=== PATIENT | male | born 1960 | race Hispanic/Latino ===

== ENCOUNTER 2023-12-22 08:53 | Inpatient (IN) | payer BC ==
[~2023-12-22] VITALS: Ht 170.2 cm; Wt 70.0 kg
[2023-12-22] MEDS ORDERED: KETOROLAC TROMETHAMINE 30 MG/ML VIAL IV ONE (09:15)
[2023-12-22] MEDS ORDERED: AMP/SULBACTAM SOD 3 GM in SODIUM CHLORIDE 0.9% 100 ML IV ONE (09:15)
[2023-12-22 09:38] LABS: HEMATOCRIT 38.1 % (35.0-50.0); HEMOGLOBIN 12.7 g/dL (12.0-18.0); MCHC 33.2 g/dl (30-36); MCV 93.4 fl (81-99); PLATELET COUNT 376 K/uL (140-440); RBC 4.08 M/ul (4.3-5.7); RDW 13.3 (10.5-15.0)
[2023-12-22] MEDS ORDERED: AMP/SULBACTAM SOD 3 GM VIAL IV ONE (09:45)
[2023-12-22 09:52] LABS: ALBUMIN 2.1 g/dL (3.4-5.0); ALBUMIN/GLOBULIN RATIO 0.4 (1.1-2.4); ANION GAP 13.1 (7-21); BILIRUBIN, TOTAL 0.7 ng/dL (0.2-1.0); BUN/CREATININE RATIO 13.69 (6.0-28.6); CALCIUM 8.7 mg/dL (8.5-10.1); CREATININE, SERUM 0.73 mg/dL (0.70-1.30); POTASSIUM 4.1 mmol/L (3.5-5.1); PROTEIN, TOTAL 7.3 g/dL (6.4-8.2)
[2023-12-22 09:53] LABS: BANDS, MANUAL DIFF 2; LYMPHOCYTES, MANUAL DIFF 4; MONOCYTES, MANUAL DIFF 5; NEUTROPHILS, MANUAL DIFF 89
[2023-12-22] MEDS ORDERED: SODIUM CHLORIDE 0.9% 1,000 ML IV ONE (11:15)
[2023-12-22] MEDS ORDERED: HYDROmorphone HCL 1 MG/ML SYR IV PRN ×4 (11:15→14:00)
[2023-12-22] MEDS ORDERED: DEXTROSE 50% 50 ML SYR IV PRN ×2 (11:30)
[2023-12-22] MEDS ORDERED: GLUCAGON,HUMAN RECOMBINANT 1 MG/ML VIAL SUB-Q PRN (11:30)
[2023-12-22] MEDS ORDERED: DEXTROSE 5% 1,000 ML IV PRN (11:30)
[2023-12-22] MEDS ORDERED: LACTATED RINGER'S 1,000 ML IV SCH (11:45)
[2023-12-22] MEDS ORDERED: ondansetron HCL 4 MG/2 ML VIAL IV PRN ×3 (11:45→14:00)
[2023-12-22] MEDS ORDERED: LIDOCAINE 1% W/ EPI 1:200,000 30 ML SDV ONE (12:09)
[2023-12-22] MEDS ORDERED: BUPIVACAINE HCL 0.25% 50 ML MDV ONE (12:09)
[2023-12-22] MEDS ORDERED: PROCHLORPERAZINE EDISYLATE 10 MG/2 ML VIAL IV PRN ×2 (12:15→14:00)
[2023-12-22] MEDS ORDERED: HYDROCODONE/APAP 10/325 1 TAB PO PRN (12:15)
[2023-12-22] MEDS ORDERED: ACETAMINOPHEN 325 MG TAB PO PRN ×2 (12:15→14:15)
[2023-12-22] MEDS ORDERED: CYANOCOBALAMIN 1,000 MCG/ML VIAL IM ONE (12:30)
[2023-12-22] MEDS ORDERED: NS + 20 mEq KCl 1,000 ML IV SCH (12:30)
[2023-12-22] MEDS ORDERED: fentaNYL citrate 100 MCG/2 ML VIAL ONE (12:38)
[2023-12-22] MEDS ORDERED: ondansetron HCL 4 MG/2 ML VIAL ONE (12:38)
[2023-12-22] MEDS ORDERED: propofoL 200 MG/20 ML VIAL ONE (12:38)
[2023-12-22] MEDS ORDERED: BUPIVACAINE 0.75% IN DEXTROSE 2 ML AMP ONE (12:38)
[2023-12-22] MEDS ORDERED: LIDOCAINE HCL 2% 5 ML SDV ONE ×2 (12:38)
[2023-12-22] MEDS ORDERED: MIDAZOLAM HCL 2 MG/2 ML VIAL ONE (12:38)
[2023-12-22] MEDS ORDERED: SODIUM HYPOCHLORITE 0.5% 480 ML BTL ONE (12:50)
--- NOTE | 2023-12-22 13:11 | CONS ---
[facility] [address] [place], [place] [address] Signed DATE OF CONSULTATION: 12/22/2023 CHIEF COMPLAINT: Left gluteal pain and swelling. HISTORY OF PRESENT ILLNESS: Briseyda is a 63-year-old gentleman, who has not seen a doctor probably his whole life. The last four days at least he has had pain swelling and pus draining out the left gluteal area to the side of the anus. He finally decided to come the emergency room for evaluation. In the emergency room, he clearly has an enormous area of swelling and erythema with some pus draining. His white count is elevated and along with his blood sugars. His sodium is low. He does drink some beer every night as well. He lives with his sister and his son is also here to help interpret to use fluently bilingual. I have been asked to see him here in the emergency room by our ER physician. PAST MEDICAL HISTORY: None. PAST SURGICAL HISTORY: I and D of left perianal abscess in the remote past. PAST SOCIAL HISTORY: Does not smoke, but he has at least four beers a night. He has no primary care provider. They do live in [place], [place] and he prefers the [email or web address] in [place], [place]. He lives with his sister . His nephew is Jewel Leung [phone]. 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 He is not able to currently drive. FAMILY HISTORY: Lots of medical issues including a sister with diabetes. REVIEW OF SYSTEMS: He had 10 systems reviewed and he said he has never broken a bone, has no metal in his body. ALLERGIES: None. MEDICATIONS: None. PHYSICAL EXAMINATION: VITAL SIGNS: His blood pressure was originally 144/83, it is down to 85/45; his heart rate was 100, it is down to 81 after a bolus of saline; his respiratory rate 17, his Electronically Signed By: FABIO SALAMANCA MD 12/22/23 1311 PATIENT NAME: BRISEYDA JACOBSEN CONSULTATION DATE OF : 58 REPORT #: [id number] PHYSICIAN: FABIO SALAMANCA MD PCP: NO PRIMARY CARE PHYSICIAN REPORT IS CONFIDENTIAL AND NOT TO BE RELEASED WITHOUT AUTHORIZATION [facility] [address] [place], [place] [address] Signed temperature is 98.8. He is 97% on room air. He is 5 feet 7 inches, 70 kg with a body mass index of 24. GENERAL: Briseyda is a 63-year-old gentleman, who looks a little older than his stated age. He is very disheveled, has extremely poor dentition. He is lying prone because of his large gluteal abscess. LUNGS: Clear to auscultation bilaterally. HEART: Sinus rhythm. GI: With his sister and his nephew in the room. We can see this rather large area of erythema, induration and swelling and drainage of pus to the left side of the anus out on the gluteus. Surprisingly, he does not appear systemically ill or toxic. LABORATORY DATA: White blood count 25.7, neutrophils 89. Glucose 364. Sodium 128, AST is 36, total bilirubin 0.7, AST up at 105, alkaline phosphatase is 325, albumin is 2.1. RADIOGRAPHIC STUDIES: CT scan of the pelvis is performed and he has very large left perianal/rectal abscess with air and fluid. ASSESSMENT AND PLAN: Briseyda is a 63-year-old probably diabetic gentleman with a rather large left perirectal/gluteal abscess. He has already been given ketorolac and some Unasyn. We are going to be taken him to the operating room here shortly for incision and drainage. He will need to stay in the hospital for a few days with Dakin's soaked gauze packing and IV antibiotics. Once this settles down, we will be able to get him discharged. I have reviewed this with him in detail. I have reviewed the surgery with him in detail. He understands the skin will be cut open and will be left open with wound care. He may or may not receive a Seton stitch. He understands there is risk including, but not limited to bleeding, infection, scarring, change in contour of the skin as well as recurrent abscesses and possible need for additional surgery or treatments. He has expressed understanding and would like to proceed. Fabio Salamanca MD ALB/MODL /[id number] cc: Chart Electronically Signed By: FABIO SALAMANCA MD 12/22/23 1311 PATIENT NAME: BRISEYDA JACOBSEN CONSULTATION DATE OF : 58 REPORT #: [id number] PHYSICIAN: FABIO SALAMANCA MD PCP: NO PRIMARY CARE PHYSICIAN REPORT IS CONFIDENTIAL AND NOT TO BE RELEASED WITHOUT AUTHORIZATION [address] [address] Signed [facility] Fabio Salamanca MD Copies: FABIO SALAMANCA MD ~ Electronically Signed By: FABIO SALAMANCA MD 12/22/23 1311 PATIENT NAME: BRISEYDA JACOBSEN CONSULTATION DATE OF : 58 REPORT #: [id number] PHYSICIAN: FABIO SALAMANCA MD PCP: NO PRIMARY CARE PHYSICIAN REPORT IS CONFIDENTIAL AND NOT TO BE RELEASED WITHOUT AUTHORIZATION
[2023-12-22] MEDS ORDERED: IBLOOD GLUCOSE TEST STRIP 1 EA TEST VI PRN (14:00)
[2023-12-22] MEDS ORDERED: NALOXONE HCL 0.4 MG SYR IV PRN (14:00)
[2023-12-22] MEDS ORDERED: INSULIN LISPRO 100 UNIT/ML ML SUB-Q SCH ×2 (14:00→17:00)
[2023-12-22] MEDS ORDERED: IBLOOD GLUCOSE TEST STRIP 1 EA TEST XX SCH (14:00)
[2023-12-22] MEDS ORDERED: droPERidol 5 MG/2 ML VIAL IV PRN (14:00)
[2023-12-22] MEDS ORDERED: AMP/SULBACTAM SOD 3 GM in SODIUM CHLORIDE 0.9% 100 ML IV SCH ×2 (14:00)
[2023-12-22] MEDS ORDERED: fentaNYL citrate 50 MCG/ML SDV IV PRN (14:00)
[2023-12-22 15:22] VITALS: BP 94/48
[2023-12-22] MEDS ORDERED: CYANOCOBALAMIN 1,000 MCG/ML VIAL ONE (15:48)
[2023-12-22 16:00] VITALS: BP 99/69
[2023-12-22] MEDS ORDERED: IBLOOD GLUCOSE TEST STRIP 1 EA TEST VI SCH (17:00)
[2023-12-22 17:15] VITALS: BP 108/56
[2023-12-22] MEDS ORDERED: INSULIN GLARGINE-YFGN 100 UNIT/ML ML SUB-Q SCH (17:45)
[2023-12-22 18:08] VITALS: BP 94/57
[2023-12-22] MEDS ORDERED: LIDOCAINE 2% VISCOUS 6 ML SYR ONE (18:58)
[2023-12-22] MEDS ORDERED: LIDOCAINE 2% VISCOUS 6 ML SYR TOP ONE ×2 (19:00)
[2023-12-22] MEDS ORDERED: IBUPROFEN 800 MG TAB PO PRN (19:00)
[2023-12-22 20:39] VITALS: BP 97/50
[2023-12-22 23:58] VITALS: BP 97/50
[2023-12-23] VITALS (11 sets, daily range): BP systolic 101–130; BP diastolic 60–69
[2023-12-23 05:36] LABS: BASOPHILS 0.9 % (0-2); EOSINOPHILS 0.6 % (0-6); HEMATOCRIT 31.6 % (35.0-50.0); HEMOGLOBIN 10.6 g/dL (12.0-18.0); LYMPHOCYTES 9.4 % (24-44); MCHC 33.7 g/dl (30-36); MCV 91.9 fl (81-99); MONOCYTES 6.7 % (0-12); NEUTROPHILS 82.4 % (39-80); PLATELET COUNT 377 K/uL (140-440); RBC 3.44 M/ul (4.3-5.7); RDW 13.2 (10.5-15.0)
[2023-12-23 05:56] LABS: ANION GAP 11.8 (7-21); BUN/CREATININE RATIO 20.33 (6.0-28.6); CALCIUM 7.6 mg/dL (8.5-10.1); CREATININE, SERUM 0.59 mg/dL (0.70-1.30); MAGNESIUM 1.8 mg/dL (1.8-2.4); PHOSPHORUS, INORGANIC 3.4 mg/dL (2.5-4.9); POTASSIUM 3.8 mmol/L (3.5-5.1)
--- NOTE | 2023-12-23 06:15 | OR ---
[facility] [address] [place], [place] [address] Signed DATE OF OPERATION: 12/22/2023 SURGEON: Fabio Salamanca MD PREOPERATIVE DIAGNOSIS: Left perirectal abscess. POSTOPERATIVE DIAGNOSIS: Left perirectal abscess. PROCEDURES: 1. Incision and drainage of left perirectal abscess. 2. Placement of seton stitches x2. ESTIMATED BLOOD LOSS: Minimal. INDICATIONS: Briseyda is a 63-year-old gentleman, who has never been to a doctor in his entire life. He lives over in [place], [place]. He happens to live with his sister. 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 He does not smoke, but he does like a few beers each night. He developed pain and swelling to the left of his anus about four days ago. It has gotten progressively worse. He finally decided to come to the emergency room for evaluation. It was clear he had a rather substantial infection in the emergency room. He was given Unasyn and a CT of the pelvis was ordered. He has a very large left perirectal abscess extending up near the prostate and urinary bladder. I had been asked to see me as a local general surgeon on-call. I met with Briseyda and his nephew, Javed, and his sister, . We had a long discussion regarding his infection. We can see that his glucose is up at 364. His whole family apparently has diabetes. We are going to have our medical service see him with respect to the above. We will order hemoglobin A1c as well. I explained to Briseyda we needed to incise and drain this area and evacuate the abscess. We would pack it with Dakin's soaked gauze. He will need to stay in the hospital at least a night or two until we are convinced that he is improving. He understands these can be very difficult issues, particularly given the size of his abscess. He understands they have a high propensity to recur. He had expressed understanding and wished to proceed. DESCRIPTION OF PROCEDURE: Briseyda was taken in the operating room and kept in the right lateral decubitus position. Spinal was placed per our nurse technology officer. After this, Briseyda was placed Electronically Signed By: FABIO SALAMANCA MD 12/23/23 0615 PATIENT NAME: BRISEYDA JACOBSEN OPERATIVE REPORT DATE OF : 58 REPORT #: [id number] PHYSICIAN: FABIO SALAMANCA MD PCP: NO PRIMARY CARE PHYSICIAN REPORT IS CONFIDENTIAL AND NOT TO BE RELEASED WITHOUT AUTHORIZATION [facility] [address], [place] [address] Signed into the prone dhara-knife position with appropriate padding and monitoring. He was given monitored anesthesia care per our nurse technology officer. He had been prepped and draped in the usual sterile fashion. He did not receive any heparin or Lovenox. SCDs were utilized. He was already on his Unasyn. After this, full rectal exam was performed and he seems to have okay sphincter tone after the spinal. 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 It traveled straight down to the dentate line and the overlying skin was extremely thin. We went through that area with our yellow vessel loop and tied and in place with two silk sutures. The vessel loop was then trimmed the length. We could palpate this abscess over his left gluteal area and we followed it up along the side of the rectum until we encountered the bone. We opened the skin laterally and removed an ellipse of skin about 3 cm long and if not 2 cm or little bit wider. Copious amounts of pus were evacuated. The wound was irrigated with copious amounts of warm saline. On digital palpation, he had a small opening in the size of the index finger that traveled up along the rectum and an additional pocket of pus was found. I did not have to incise or drain any of that tissue up deeper. We simply flushed that whole area with copious amounts of warm saline. After this, we used full-strength Dakin solution and irrigated the entire abscess cavity. We then used 4 inch wide Kerlix gauze roll soaked in Dakin solution and we inserted it with the help of my index finger all the way up in the top of that abscess cavity. That abscess cavity was up at least 12 cm. I could not quite reach the top well with my index finger, it took quite a bit of effort. From what we can tell, all the loculations were broken up. We put in about 4 feet total of the Kerlix gauze roll and we cut that to length. This was covered with a dry ABD and mesh underwear. After this, Briseyda was rotated in the supine position onto his hospital bed and taken into recovery room in stable condition. Fabio Salamanca MD ALB/MODL /[id number] cc: Clinic Fabio Salamanca MD Electronically Signed By: FABIO SALAMANCA MD 12/23/23 0615 PATIENT NAME: BRISEYDA JACOBSEN OPERATIVE REPORT DATE OF : 58 REPORT #: [id number] PHYSICIAN: FABIO SALAMANCA MD PCP: NO PRIMARY CARE PHYSICIAN REPORT IS CONFIDENTIAL AND NOT TO BE RELEASED WITHOUT AUTHORIZATION [address] [address] Signed Copies: FABIO SALAMANCA MD ~ Electronically Signed By: FABIO SALAMANCA MD 12/23/2315 PATIENT NAME: BRISEYDA JACOBSEN OPERATIVE REPORT DATE OF : 58 REPORT #: [id number] PHYSICIAN: FABIO SALAMANCA MD PCP: NO PRIMARY CARE PHYSICIAN REPORT IS CONFIDENTIAL AND NOT TO BE RELEASED WITHOUT AUTHORIZATION
[2023-12-23] MEDS ORDERED: THIAMINE HCL 100 MG TAB PO SCH (08:00)
[2023-12-23] MEDS ORDERED: FOLIC ACID 1 MG TAB PO SCH (08:00)
[2023-12-23] MEDS ORDERED: ENOXAPARIN SODIUM 40 MG/0.4 ML SYR SUB-Q SCH (09:00)
[2023-12-23] MEDS ORDERED: MAGNESIUM OXIDE 400 MG TABLET PO SCH (09:00)
[2023-12-23] MEDS ORDERED: INSULIN GLARGINE-YFGN 100 UNIT/ML ML SUB-Q SCH (09:00)
[2023-12-23] MEDS ORDERED: MAGNESIUM SULFATE 2 GM/50 ML BAG IV ONE (11:45)
[2023-12-23] MEDS ORDERED: metFORMIN HCL 500 MG TABCR PO SCH (12:00)
--- NOTE | 2023-12-23 14:43 | EKG ---
[facility] [address] [facility] [place], [place] [address] Signed Normal sinus rhythm Normal ECG No previous ECGs available Confirmed by Bertha Augustin ([id number]) on 12/23/2023 2:42:41 PM Electronically Signed By: BERTHA AUGUSTIN MD 12/23/23 1443 PATIENT NAME: RAPHAEL CENTENO BRISEYDA CARMONA Electrocardiogram DATE OF : 58 PHYSICIAN: BERTHA AUGUSTIN MD REPORT #: [id number] REPORT IS CONFIDENTIAL AND NOT TO BE RELEASED WITHOUT AUTHORIZATION
[2023-12-24] VITALS (7 sets, daily range): BP systolic 100–117; BP diastolic 64–70
[2023-12-24] MEDS ORDERED: SODIUM HYPOCHLORITE 0.5% 480 ML BTL MISC PRN (08:15)
[2023-12-24] MEDS ORDERED: EMPAGLIFLOZIN 10 MG TAB PO SCH (09:00)
[2023-12-24] MEDS ORDERED: INSULIN GLARGINE-YFGN 100 UNIT/ML ML SUB-Q SCH (21:00)
[2023-12-25 05:26] VITALS: BP 109/70
[2023-12-25 05:28] VITALS: BP 109/70
[2023-12-25 05:42] LABS: BASOPHILS 0.6 % (0-2); EOSINOPHILS 2.1 % (0-6); HEMATOCRIT 34.6 % (35.0-50.0); HEMOGLOBIN 11.7 g/dL (12.0-18.0); LYMPHOCYTES 14.2 % (24-44); MCH 31.6 (27-36); MCHC 33.8 g/dl (30-36); MCV 93.5 fl (81-99); MONOCYTES 9.8 % (0-12); NEUTROPHILS 73.3 % (39-80); PLATELET COUNT 479 K/uL (140-440)
[2023-12-25 05:57] LABS: ANION GAP 11.7 (7-21); BUN/CREATININE RATIO 11.47 (6.0-28.6); CALCIUM 8.1 mg/dL (8.5-10.1); CREATININE, SERUM 0.61 mg/dL (0.70-1.30); MAGNESIUM 2.1 mg/dL (1.8-2.4); POTASSIUM 3.7 mmol/L (3.5-5.1)
--- NOTE | 2023-12-25 08:39 | DS ---
[facility] [address], [place] [address] Signed ADMISSION DATE: 12/22/2023 DISCHARGE DATE: 12/25/2023 FINAL DIAGNOSES: 1. Large complex left perirectal abscess. 2. Newly diagnosed diabetes. 3. Newly diagnosed anemia. PROCEDURES: 1. Incision and drainage of left perirectal abscess. 2. Placement seton stitches x2. 3. CT scan of abdomen and pelvis. HISTORY OF PRESENT ILLNESS: Briseyda is a 63-year-old gentleman, who has not seen a doctor over 40 years. Apparently, most of the family is diabetic. However, he denies any dysuria or polydipsia. He presented with a rather large left perirectal abscess extending up to the base of the urinary bladder and the prostate gland. I have been asked to admit him as a general surgeon on-call. HOSPITAL COURSE: I had seen Briseyda in the ER and we took him over to the operating room for incision and drainage of his rather large left perirectal abscess. He has a large cavity just underneath the skin and another cavity up near the prostate gland and his bladder. He has two seton stitches placed, one in the posterior midline and one between the two abscess cavities. He was admitted and initiated on Unasyn and later we added Flagyl. He does like to have some beer every night, but he never went into any withdrawals. We had our Hospitalist Service see him as well. They have been working with him closely along with our dietitian and our pharmacist with respect to his new diagnosis of diabetes. He is now on Jardiance 10 mg p.o. daily and metformin XR 500 mg p.o. b.i.d. with meals. He has been receiving Lantus 10 units subcutaneous at bedtime. His blood sugars have markedly improved and are now between 107 to 189. We have also noted that his hemoglobin is low at 11.7 with a mean cell volume of 93. His white count is back down to normal. The wound cultures taken yesterday are still pending. At this point, he is eating very well, and passing gas. He is able to urinate quite well. He has been taking multiple showers. Our nurses have been irrigating the wound with full strength Dakin solution with good results. He said that provides good relief. His wound is markedly improved although very indurated still at this point. Much less pus at this point. Almost minimal and his temperatures have completely abated. At this point, he has been doing well. We have made arrangements for his outpatient care. We will be discharging him to home with his family. Electronically Signed By: FABIO FLORES MD 12/25/23 0839 PATIENT NAME: BRISEYDA JACOBSEN DISCHARGE SUMMARY DATE OF : 58 REPORT #: [id number] PHYSICIAN: FABIO FLORES MD PCP: NO PRIMARY CARE PHYSICIAN REPORT IS CONFIDENTIAL AND NOT TO BE RELEASED WITHOUT AUTHORIZATION [facility] [address], [place] [address] Signed DISCHARGE PLANS AND MEDICATIONS: Briseyda will be discharged to home with Augmentin 875 mg 1 tablet p.o. b.i.d. for 10 days. He has already received four days of antibiotics. He will receive [place] 10/325 mg 1 p.o. q.6 hours p.r.n. for severe pain dispense 15 tablets with no refills. He is welcome to use Tylenol p.r.n. for zezp-ar-lcgvlfao pain. He should not use NSAIDs given his diabetes. He will be going home with Jardiance 10 mg p.o. daily. He will have metformin XR 500 mg p.o. b.i.d. with meals and then he will have Lantus 10 units subcutaneous at bedtime. Apparently his entire family goes to the [facility]. However, they do live in [place], [place]. [facility] was able to see him in four days. Therefore, those arrangements have been made and he will need followup on the diabetes and anemia. Also his family wanted some help with wound care. [facility] is much closer to his home and we have made arrangements in that regard. We have also contacted our regional colorectal surgeon for this very complex perirectal abscess. He will be seeing Dr. Sandhu here in the days ahead. Of course, he is always welcome to call my office with any concerns or questions. I have reviewed this with Briseyda, his sister, his nephew, our hospitalist team and our discharge team. Briseyda has expressed understanding and would like to proceed as above. MD GIANNI Marley/RASHAWNL /[id number] cc: [facility] MD Fabio Perales MD Electronically Signed By: FABIO FLORES MD 12/25/23 0839 PATIENT NAME: BRISEYDA JACOBSEN RECORD #: [id number] DISCHARGE SUMMARY DATE OF : 58 REPORT #: [id number] PHYSICIAN: FABIO FLORES MD PCP: NO PRIMARY CARE PHYSICIAN REPORT IS CONFIDENTIAL AND NOT TO BE RELEASED WITHOUT AUTHORIZATION [address] [address] Signed Copies: FABIO FLORES MD ~ Electronically Signed By: FABIO FLORES MD 12/25/23 0839 PATIENT NAME: BRISEYDA JACOBSEN DISCHARGE SUMMARY DATE OF : 58 REPORT #: [id number] PHYSICIAN: FABIO FLORES MD PCP: NO PRIMARY CARE PHYSICIAN REPORT IS CONFIDENTIAL AND NOT TO BE RELEASED WITHOUT AUTHORIZATION
[2023-12-25] MEDS ORDERED: METFORMIN HCL500 M2 PO (09:34)
[2023-12-25] MEDS ORDERED: FARXIGA5 MG PO (09:35)
[2023-12-25] MEDS ORDERED: [UNRECOGNIZED DRUG - OTHER] MISC (09:37)
[2023-12-25] MEDS ORDERED: LANTUS100 UNITS/ SUB-Q (09:37)
[2023-12-25] MEDS ORDERED: ACCU-CHEK GUID1 EAC3 XX (09:39)
[2023-12-25] MEDS ORDERED: ACCU-CHEK MULT1 EACH MISC (09:39)
[2023-12-25] MEDS ORDERED: AMOX TR-K CLV1 EAC1 PO (09:40)
[2023-12-25] MEDS ORDERED: ACCU-CHEK GUID1 EACH VI (09:40)
[2023-12-25] MEDS ORDERED: HYDROCODON-ACE1 EAC8 PO (09:41)
[2023-12-25 10:06] VITALS: BP 124/80
[2023-12-25 10:45] VITALS: BP 124/80
== END 2023-12-25 13:17 | disposition home or self-care (01) | DRG 331 ==
LOC: ED 08:53 → MS 11:08
PROVIDERS: Emergency Medicine; ADMIT Colon & Rectal Surgery; ATTEND Colon & Rectal Surgery
PROC: 0D9P00Z Drainage of Rectum with Drainage Device, Open Approach (ICD-10-PCS; principal; 2023-12-22 12:30)
DX: K61.1 Rectal abscess (principal); D64.9 Anemia, unspecified; E11.65 Type 2 diabetes mellitus with hyperglycemia; F10.90 Alcohol use, unspecified, uncomplicated; R33.9 Retention of urine, unspecified; E83.42 Hypomagnesemia
CPT/HCPCS: 00902; 36415; 51701; 51798; 72193; 80048; 80053; 83036; 83735; 84100; 84134; 85025; 85060; 87070; 87075; 87205; 93005; 93010; 96374; 96375; 99284; A9270; J0295; J1170; J1650; J1815; J1885; J2001; J2250; J2405; J2704; J3010; J3420; J3475; J3480; J7030